=== PATIENT | male | born 1955 | race African-American/Black ===

== ENCOUNTER 2017-02-28 12:40 | Emergency (ER) | payer OTHER ==
[~2017-02-28] VITALS: Ht 172.7 cm; Wt 92.8 kg
[2017-02-28 12:50] VITALS: BP 125/83
== END 2017-02-28 14:52 | disposition home or self-care (01) ==
LOC: EME 12:40
DX: S80.02XA Contusion of left knee, initial encounter (principal); M54.2 Cervicalgia; V49.40XA Driver injured in collision with unspecified motor vehicles in traffic accident, initial encounter; Y92.410 Unspecified street and highway as the place of occurrence of the external cause
CPT/HCPCS: 73564; 99281; 99284

== ENCOUNTER 2017-03-03 14:08 | Emergency (ER) | payer OTHER ==
[~2017-03-03] VITALS: Ht 172.7 cm; Wt 92.3 kg
[2017-03-03 15:25] VITALS: BP 129/80
== END 2017-03-03 15:25 | disposition home or self-care (01) ==
LOC: EME 14:08
DX: M25.562 Pain in left knee (principal)
CPT/HCPCS: 99281; 99283

== ENCOUNTER 2017-11-10 20:19 | Emergency (ER) | payer SELFPAY ==
[~2017-11-10] VITALS: Ht 172.7 cm; Wt 87.9 kg
[2017-11-10] MEDS ORDERED: KEFLEX500 MG PO (21:52)
[2017-11-10 22:05] VITALS: BP 113/77
== END 2017-11-10 22:05 | disposition home or self-care (01) ==
LOC: EME 20:19
DX: L03.311 Cellulitis of abdominal wall (principal); Z87.2 Personal history of diseases of the skin and subcutaneous tissue; Z86.14 Personal history of Methicillin resistant Staphylococcus aureus infection; Z91.010 Allergy to peanuts; Z91.013 Allergy to seafood
CPT/HCPCS: 99281; 99284